=== PATIENT | female | born 1980 | race Caucasian/White ===

== ENCOUNTER 2016-06-24 09:15 | Emergency (ER) | payer OTHER ==
[~2016-06-24] VITALS: Ht 175.3 cm; Wt 70.3 kg
[2016-06-24] MEDS ORDERED: ONDANSETRON HCL 4 MG/2 ML VIAL IV ONE (09:45)
[2016-06-24] MEDS ORDERED: HYDROmorphone HCL 2 MG/ML VL IV ONE (09:45)
[2016-06-24] MEDS ORDERED: ETOMIDATE (2MG/ML) 20ML VIAL IV ONE ×2 (11:00→11:30)
[2016-06-24 11:16] VITALS: BP 140/101
== END 2016-06-24 11:59 | disposition home or self-care (01) ==
LOC: ER 09:20
DX: S83.014A Lateral dislocation of right patella, initial encounter (principal); X50.1XXA Overexertion from prolonged static or awkward postures, initial encounter; Y93.01 Activity, walking, marching and hiking; Y99.9 Unspecified external cause status; Y92.89 Other specified places as the place of occurrence of the external cause
CPT/HCPCS: 27560; 73562; 94761; 96374; 96375; 99285; J1170; J2405; J7040